=== PATIENT | male | born 1990 | race Caucasian/White ===

== ENCOUNTER 2019-12-11 17:47 | Emergency (ER) | payer OTHER, SELFPAY ==
[2019-12-11] VITALS (38 sets, daily range): BP systolic 122–175; BP diastolic 63–89; PULSE 79–93; RESP 13–31; TEMP 37.4; O2SAT 93–99
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
[2019-12-11] MEDS: MORPHINE SULFATE 4 MG/ML INJ IV PUSH ×2 (18:09→19:34)
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
== END 2019-12-11 22:32 | disposition short-term general hospital (02) ==
PROVIDERS: Emergency Provider Emergency Medicine
DX: S22.41XA Multiple fractures of ribs, right side, initial encounter for closed fracture (principal); S22.018A Other fracture of first thoracic vertebra, initial encounter for closed fracture; S43.101A Unspecified dislocation of right acromioclavicular joint, initial encounter; S27.0XXA Traumatic pneumothorax, initial encounter; V86.15XA Passenger of 3- or 4- wheeled all-terrain vehicle (ATV) injured in traffic accident, initial encounter
CPT/HCPCS: 71045; 72125; 73030; 96361; 96374; 96375; 96376; 99285; J0131; J2270; J3010